=== PATIENT | male | born 1955 | race Caucasian/White ===

== ENCOUNTER 2025-01-04 16:33 | Inpatient (IN) | payer MEDICARE, OTHER ==
[~2025-01-04] VITALS: Ht 167.6 cm; Wt 85.9 kg
[2025-01-04] MEDS ORDERED: FLUC-1 PO (17:15)
[2025-01-04] MEDS ORDERED: ACET-907 PO (17:15)
[2025-01-04] MEDS ORDERED: TAMS-18 PO (17:15)
[2025-01-04] MEDS ORDERED: VITA100T28 PO (17:15)
[2025-01-04] MEDS ORDERED: FOLI1TAB11 PO (17:15)
[2025-01-04] MEDS ORDERED: METH-1164 PO (17:15)
[2025-01-04] MEDS ORDERED: OXYC-517 PO (17:15)
[2025-01-04] MEDS ORDERED: HOME MED LIST COMPLETE! XX SCH (17:15)
[2025-01-04] MEDS ORDERED: DICL100G10 TOP (17:15)
[2025-01-04] MEDS ORDERED: PANT-23 PO (17:15)
[2025-01-04] MEDS ORDERED: ELIQ5TAB PO (17:15)
[2025-01-04] MEDS ORDERED: MED REC COMMENT (17:17)
[2025-01-04 17:18] LABS: BASO # 0.0 10^3/uL (0.0-0.2); BASO % 0.4 % (0.0-1.0); EOS # 0.4 10^3/uL (0.0-0.5); EOS % 4.7 % (0.0-3.0); LYMPH # 2.0 10^3/uL (1.5-5.0); LYMPH % 25.8 % (24.0-44.0); MONO # 0.6 10^3/uL (0.0-0.8); MONO % 7.7 % (2.0-8.0); NEUTROPHILS # 4.7 10^3/uL (1.5-8.5); NEUTROPHILS % 61.0 % (36.0-66.0); PLATELET COUNT, AUTOMATED 330 10^3/uL (150-450)
[2025-01-04 17:48] LABS: CALCIUM LEVEL 9.3 MG/DL (8.3-10.6); CARBON DIOXIDE LEVEL 29 MMOL/L (20-31); CHLORIDE LEVEL 102 MMOL/L (98-107); CREATININE FOR GFR 0.60 MG/DL (0.70-1.30); GLOMERULAR FILTRATION RATE > 90.0 (>42); POTASSIUM SERUM 4.5 MMOL/L (3.5-5.1); SODIUM LEVEL 140 MMOL/L (136-145)
[2025-01-04 17:54] LABS: ERYTHROCYTE SEDIMENTATION RATE 79 mm/hr (0-20)
[2025-01-04 18:04] LABS: ALT/SGPT 73 U/L (7.0-40); AST/SGOT 40 U/L (<34); C REACTIVE PROTEIN QUANTITATIV 6.97 MG/DL (<1.0)
[2025-01-04] MEDS: GASTROGRAFIN SOLUTION 30ML PO SCH (18:38)
[2025-01-04] MEDS: CEFEPIME HCL 2 GM in DEXTROSE 5% (D5W) ADV/MINI-BAG 50 ML IV ONE (18:39)
[2025-01-04] MEDS ORDERED: ISOVUE-370 76% 100 ML VIAL As Ordered ONE (20:10)
[2025-01-04] MEDS ORDERED: MOM 30 ML SUSPENSION UDC PO PRN (23:15)
[2025-01-05] MEDS: TAMSULOSIN 0.4 MG CAP PO SCH (01:14)
[2025-01-05 05:45] VITALS: BP 122/70; TEMP 97.4; O2SAT 95
[2025-01-05 07:30] LABS: BASO # 0.1 10^3/uL (0.0-0.2); BASO % 0.7 % (0.0-1.0); EOS # 0.5 10^3/uL (0.0-0.5); EOS % 6.3 % (0.0-3.0); LYMPH # 1.8 10^3/uL (1.5-5.0); LYMPH % 25.0 % (24.0-44.0); MONO # 0.5 10^3/uL (0.0-0.8); MONO % 6.5 % (2.0-8.0); NEUTROPHILS # 4.5 10^3/uL (1.5-8.5); NEUTROPHILS % 61.2 % (36.0-66.0); PLATELET COUNT, AUTOMATED 298 10^3/uL (150-450)
[2025-01-05 08:04] LABS: ALT/SGPT 60 U/L (7.0-40); AST/SGOT 40 U/L (<34); CALCIUM LEVEL 9.0 MG/DL (8.3-10.6); CARBON DIOXIDE LEVEL 28 MMOL/L (20-31); CHLORIDE LEVEL 99 MMOL/L (98-107); CREATININE FOR GFR 0.61 MG/DL (0.70-1.30); GLOMERULAR FILTRATION RATE > 90.0 (>42); MAGNESIUM LEVEL 2.0 MG/DL (1.8-2.4); POTASSIUM SERUM 4.7 MMOL/L (3.5-5.1); SODIUM LEVEL 137 MMOL/L (136-145)
[2025-01-05] MEDS: APIXABAN 5 MG TAB PO SCH (10:31)
[2025-01-05] MEDS: DOCUSATE SODIUM 100 MG CAPSULE PO SCH (10:31)
[2025-01-05] MEDS: FOLIC ACID 1 MG TAB PO SCH (10:31)
[2025-01-05] MEDS: PANTOPRAZOLE 40MG TAB PO SCH (10:32)
[2025-01-05] MEDS: THIAMINE 100 MG TAB PO SCH (10:32)
[2025-01-05 14:14] VITALS: BP 121/62; TEMP 98.3; O2SAT 99
[2025-01-05] MEDS: ACETAMINOPHEN 325 MG TAB PO PRN (17:23)
[2025-01-05 20:55] VITALS: BP 132/75; TEMP 98.5; O2SAT 95
[2025-01-06 03:56] VITALS: BP 130/69; TEMP 97.8; O2SAT 94
[2025-01-06 06:17] LABS: BASO # 0.0 10^3/uL (0.0-0.2); BASO % 0.3 % (0.0-1.0); EOS # 0.4 10^3/uL (0.0-0.5); EOS % 6.1 % (0.0-3.0); LYMPH # 1.5 10^3/uL (1.5-5.0); LYMPH % 24.3 % (24.0-44.0); MONO # 0.5 10^3/uL (0.0-0.8); MONO % 7.8 % (2.0-8.0); NEUTROPHILS # 3.7 10^3/uL (1.5-8.5); NEUTROPHILS % 61.2 % (36.0-66.0); PLATELET COUNT, AUTOMATED 286 10^3/uL (150-450)
[2025-01-06 06:42] LABS: CALCIUM LEVEL 8.9 MG/DL (8.3-10.6); CARBON DIOXIDE LEVEL 28 MMOL/L (20-31); CHLORIDE LEVEL 103 MMOL/L (98-107); CREATININE FOR GFR 0.60 MG/DL (0.70-1.30); GLOMERULAR FILTRATION RATE > 90.0 (>42); POTASSIUM SERUM 4.3 MMOL/L (3.5-5.1); SODIUM LEVEL 141 MMOL/L (136-145)
[2025-01-06 13:07] VITALS: BP 127/71; TEMP 98.4; O2SAT 96
[2025-01-06 20:08] VITALS: BP 116/65; TEMP 98; O2SAT 97
[2025-01-07 03:44] VITALS: BP 127/66; TEMP 97.5; O2SAT 96
[2025-01-07 06:40] LABS: PLATELET COUNT, AUTOMATED 286 10^3/uL (150-450)
[2025-01-07 07:09] LABS: C REACTIVE PROTEIN QUANTITATIV 4.88 MG/DL (<1.0)
[2025-01-07 07:35] LABS: ALT/SGPT 45 U/L (7.0-40); AST/SGOT 27 U/L (<34); CALCIUM LEVEL 8.7 MG/DL (8.3-10.6); CARBON DIOXIDE LEVEL 27 MMOL/L (20-31); CHLORIDE LEVEL 105 MMOL/L (98-107); CREATININE FOR GFR 0.64 MG/DL (0.70-1.30); GLOMERULAR FILTRATION RATE > 90.0 (>42); POTASSIUM SERUM 4.0 MMOL/L (3.5-5.1); SODIUM LEVEL 141 MMOL/L (136-145)
[2025-01-07 11:53] VITALS: BP 126/66; TEMP 97.7; O2SAT 95
[2025-01-07 19:46] VITALS: BP 133/70; TEMP 99.4; O2SAT 95
[2025-01-08 03:57] VITALS: BP 134/70; TEMP 98.1; O2SAT 96
[2025-01-08 12:00] VITALS: BP 129/69; TEMP 97.9; O2SAT 96
[2025-01-09 03:18] VITALS: BP 127/71; TEMP 97.4; O2SAT 93
[2025-01-09 06:06] LABS: PLATELET COUNT, AUTOMATED 335 10^3/uL (150-450)
[2025-01-09 06:37] LABS: C REACTIVE PROTEIN QUANTITATIV 2.51 MG/DL (<1.0)
[2025-01-09 06:38] LABS: CALCIUM LEVEL 8.4 MG/DL (8.3-10.6); CARBON DIOXIDE LEVEL 27 MMOL/L (20-31); CHLORIDE LEVEL 106 MMOL/L (98-107); CREATININE FOR GFR 0.62 MG/DL (0.70-1.30); GLOMERULAR FILTRATION RATE > 90.0 (>42); POTASSIUM SERUM 4.3 MMOL/L (3.5-5.1); SODIUM LEVEL 143 MMOL/L (136-145)
[2025-01-10 04:13] VITALS: BP 127/70; TEMP 97.7; O2SAT 97
[2025-01-11 04:14] VITALS: BP 126/69; TEMP 97.9; O2SAT 98
[2025-01-12 04:00] VITALS: BP 136/71; TEMP 98.4; O2SAT 97
[2025-01-12 20:00] VITALS: BP 143/63; TEMP 97.7; O2SAT 96
[2025-01-13 04:00] VITALS: BP 138/63; TEMP 98.4; O2SAT 96
[2025-01-13 09:00] VITALS: BP 138/63; TEMP 98.4; O2SAT 96
== END 2025-01-13 12:46 | DRG 395 ==
LOC: M ED 16:33 → EDBD 16:33 → M ED INP 23:43 → M MSPAV 01-05 05:25
PROVIDERS: ADMIT Internal Medicine; ATTEND Student in an Organized Health Care Education/Training Program
DX: K63.2 Fistula of intestine (principal); I10 Essential (primary) hypertension; I73.9 Peripheral vascular disease, unspecified; D64.9 Anemia, unspecified; K21.9 Gastro-esophageal reflux disease without esophagitis; R53.81 Other malaise; N40.1 Benign prostatic hyperplasia with lower urinary tract symptoms; M54.50 Low back pain, unspecified; R33.9 Retention of urine, unspecified; R74.01 Elevation of levels of liver transaminase levels; G89.29 Other chronic pain; K57.30 Diverticulosis of large intestine without perforation or abscess without bleeding; Z85.46 Personal history of malignant neoplasm of prostate; Z86.718 Personal history of other venous thrombosis and embolism; Z85.828 Personal history of other malignant neoplasm of skin; Z96.642 Presence of left artificial hip joint; Z79.01 Long term (current) use of anticoagulants; Z79.899 Other long term (current) drug therapy; Z88.0 Allergy status to penicillin; Z91.018 Allergy to other foods